=== PATIENT | male | born 1970 | race American Indian/Alaskan Native ===

== ENCOUNTER 2025-07-08 21:41 | Emergency (ER) | payer MEDICAID, SELFPAY ==
[2025-07-08 21:53] VITALS: BP 147/112; PULSE 122; RESP 16; TEMP 37.4; O2SAT 100
--- NOTE | 2025-07-08 21:57 | PD.EDRME ---
Rapid Medical Screening Exam [facility] Arrival date/time: 07/08/25 21:41 CC: Headache, high feels different , patient recently used methamphetamines and was presented to the ER via PD who stated he had an accelerated heart rate. Patient is complaining of a mild frontal headache. Patient denies chest pain shortness of breath or difficulty breathing. Chief Complaint: Altered Mental Status Time Seen by Provider: 07/08/25 21:56 Vital signs: Vital Signs Temperature 99.3 F 07/08/25 21:53 Pulse Rate 122 H 07/08/25 21:53 Respiratory Rate 16 07/08/25 21:53 Blood Pressure 147/112 H 07/08/25 21:53 Pulse Oximetry (%) 100 07/08/25 21:53 Oxygen Delivery Method Room Air 07/08/25 21:53
[2025-07-08 22:09] LABS: Basophils # (Auto) 0.0 Thou/mm3 (0.0-0.2); Basophils % (Auto) 0 % (0-2.5); Eosinophils # (Auto) 0.0 Thou/mm3 (0.0-0.5); Eosinophils % (Auto) 1 % (0-10); Hematocrit 45.3 % (41.0-53.0); Hemoglobin 17.0 g/dL (13.5-16.0); Immature Granulocytes Auto 0.02 Thou/mm3 (0.00-0.00); Lymphocytes # (Auto) 2.2 Thou/mm3 (1.0-4.8); Lymphocytes % (Auto) 28 % (10-50); Mean Corpuscular HGB Conc 37.5 g/dl (31.0-37.0); Mean Corpuscular Hemoglobin 32.2 pg (25.0-35.0); Mean Corpuscular Volume 86 fL (80-100); Monocytes # (Auto) 0.5 Thou/mm3 (0.0-0.8); Monocytes % (Auto) 7 % (0-12); Neutrophils # (Auto) 4.9 Thou/mm3 (1.8-7.7); Neutrophils % (Auto) 64 % (37-80); Nucleated Red Blood Cell # 0.00 Thou/mm3 (0.00-0.00); Nucleated Red Blood Cell % 0 /100 WBC (0); Platelet Count 223 Thou/mm3 (140-440); RDW Standard Deviation 41.1 fL (35.1-43.9); Red Blood Count 5.28 Miln/mm3 (4.50-5.90); White Blood Count 7.6 Thou/mm3 (3.8-10.6)
[2025-07-08] MEDS: SODIUM CHLORIDE 0.9% 1000 ML 1,000 ML 999 ML IV (22:11)
[2025-07-08 22:16] VITALS: BMI 28.0
[2025-07-08 22:27] LABS: Alanine Aminotransferase 24 U/L (10-49); Albumin, Serum 4.9 gm/dL (3.5-5.0); Albumin/Globulin Ratio 1.5 (1.2-2.2); Alkaline Phosphatase 109 U/L (46-116); Anion Gap 16 (7-16); Aspartate Amino Transferase 31 U/L (0-34); BUN/Creatinine Ratio 5 Ratio (12-20); Bilirubin,Total 2.9 mg/dL (0.3-1.2); Blood Urea Nitrogen 6 mg/dL (9-23); Calcium 10.2 mg/dL (8.3-10.6); Calcium (Corrected) 10.2 mg/dL (8.5-10.1); Carbon Dioxide 20.6 mMol/L (20.0-31.0); Chloride 102 mMol/L (98-107); Creatinine (Component) 1.2 mg/dL (0.6-1.3); Estimated Creatinine Clearance 93.4 mL/min (>60); Globulin 3.3 gm/dL (2.3-3.5); Glucose 135 mg/dL (74-106); Osmolality,Calculated 277 (275-295); Potassium 3.2 mMol/L (3.4-5.1); Sodium 139 mMol/L (136-145); Total Protein 8.2 gm/dL (5.7-8.2); eGFR > 60 See Note
[2025-07-08 23:12] LABS: Collection Type, Urine Clean Catch; Squamous Epithelial Cell,Urine 0 /hpf (0-5)
[2025-07-08 23:15] LABS: Bilirubin,Urine Negative (Negative); Blood,Urine Negative (Negative); Clarity,Urine Clear (Clear/Hazy); Color,Urine Yellow (Lt Yel-Yel); Culture Indicated,Urine Not Indicated; Glucose, Urine Negative (Negative); Hyaline Casts,Urine < 1 /hpf (0-1); Ketones,Urine 1+ (Negative); Leukocyte Esterase,Urine Negative (Negative); Nitrite,Urine Negative (Negative); PH,Urine 6.0 (5.0-7.0); Protein,Urine 1+ (Neg - Trace); RBC,Urine 1 /hpf (0-3); Specific Gravity,Urine 1.018 (1.001-1.035); Urobilinogen,Urine 6.0 mg/dL (0.0-1.0); WBC,Urine 2 /hpf (0-5)
[2025-07-08 23:25] LABS: Amphetamine/Methamp Scrn,U Positive (Negative); Barbiturate Screen,Urine Negative (Negative); Benzodiazepines Screen,Urine Negative (Negative); Benzoylecgonine Screen, Ur Negative (Negative); Fentanyl Screen,Urine Negative (Negative); Opiate Screen,Urine Negative (Negative); THC Screen,Urine Negative (Negative)
--- NOTE | 2025-07-08 23:29 | EDNOTE_ITS ---
Altered Mental Status RME/HPI General Chief Complaint: Altered Mental Status Stated Complaint: ALTERED Time Seen by Provider: 07/08/25 21:56 Arrival date/time: 07/08/25 21:41 RME / HPI RME / HPI narrative: 07/08/25 21:41 CC: Headache, high feels different , patient recently used methamphetamines and was presented to the ER via PD who stated he had an accelerated heart rate. Patient is complaining of a mild frontal headache. Patient denies chest pain shortness of breath or difficulty breathing. --------- Dr. Villagran?s Main ED Evaluation: 54yo male who was escorted by DPS to ED after alleged use of fentanyl likely contaminated with meth. Patient is [id number] agitated. No syncope or seizure-like. No vomiting or diarrhea. Patient with paranoid delusions and fear of losing his life. PMH incl udes prediabetes, no history of heart disease. PSH includes cholecystectomy. Social history includes long-standing tobacco use, drinks 20 beers per day, reports frequent fentanyl use via inhalation route. Related Data Previous Rx's ?Medication ?Instructions ?Recorded hydrocodone 5 mg-acetaminophen 325 1 tab PO TID #10 ta bs 07/17/22 mg tablet Allergies Allergy/AdvReac Type Severity Reaction Status Date / Time No Known Allergies Allergy Verified 08/19/21 16:50 Review of Systems Review of Systems Systems Reviewed: All systems reviewed, normal except as documented Past Medical History Past Medical History NEUROLOGIC: Positive Head Trauma; Negative Neurological Disorders, Cerebrovascular Accident, Transient Ischemic Attacks (TIA), Dementia, Alzheimer's Disease, Parkinson's Disease, Brain Tumor, Meningitis, Seizures, Epilepsy, Multiple Sclerosis, Cerebral Palsy, Amyotrophic Lateral Sclerosis (ALS/Christen Gehrig's), Guillain-[place] Syndrome, Spina Bifida, Pa ralysis, Peripheral Neuropathy, Friedman's Palsy, Subdural Hematoma, Migraine, Spinal Cord Injury or Traumatic Brain Injury CARDIAC: Positive Cardiac Disorders and Hypertension; Negative Myocardial Infarction, Cardiac Arrhythmia, Atrial Fibrillation, Angina, Heart Murmur, Coronary Artery Disease, Atherosclerotic Heart Disease, Peripheral Vascular Disease, Aneurysm, Congestive Heart Failure, Congenital Heart Disease, Valvular Heart Disease, Rheumatic Fever, Cardiomyopathy, Edema, Pericarditis, Cellulitis, Deep Vein Thrombosis, Hypotension or Varicose Veins RESPIRATORY: Negative Chronic Obstructive Pulmonary Disease (COPD), Asthma, Bronchitis, Emphysema, Pneumonia, Pulmonary Fibrosis, Cystic Fibrosis, Tuberculosis, Pulmonary Embolism, Pulmonary Edema or Sleep Apnea GASTROINTESTINAL: Negative Gastrointestinal Disorders, Hepatitis, Cirrhosis, Pancreatitis, Celiac Disease, Gall Bladder Disease, Gastrointestinal Bleed, Esophageal Varices, Quiroz's Esophagus, Colitis, Ulcerative Colitis, Divert iculitis, Diverticulosis, Ulcer, Colorectal Cancer, Irritable Bowel, Crohn's Disease, Obstructive Bowel, Hiatal Hernia, Hemorrhoids, Gastroesophageal Reflux Disease or Obesity GENITOURINARY: Negative Renal Disease or Prostate Cancer REPRODUCTIVE: Negative Breast Cancer, Genital Herpes, Gonorrhea, Syphilis or Testicular Cancer MUSCULOSKELETAL: Negative Musculoskeletal Disorders, Muscular Dystrophy, Myasthenia Gravis, Marfan's Syndrome, Bone Cancer, Arthritis, Rheumatoid Arthritis, Osteoporosis, Degenerative Disk Disease, Gout, Scoliosis, Carpal Tunnel Syndrome, Fibromyalgia, Fractures, Degenerative Joint Disease, Osteomyelitis or Poliovirus ENT: Positive Head Trauma; Negative Cataracts, Glaucoma, Blind, Retinal Detachment, Macular Degeneration, Ear Infection, Deafness or Eye Prosthesis ENDOCRINE: Negative Diabetes Mellitus Type 1, Diabetes Mellitus Type 2, Hypoglycemia, Hyperthyroidism, Hypothyroidism, Parathyroid Disease, Pituitary Disease, Systemic Lupus Erythematosus, Syndrome of Inappropriate Antidiuretic Hormone (SIADH) or Graves' Disease HEMATOLOGIC: Negative Blood Disorders, Anemia, Leukemia, Hemophilia, Thalassemia, Sickle Cell Disease or Clotting Problems PSYCHO/SOCIAL: Positive Recreational Drug Use; Negative Psychiatric Problems, Schizophrenia, Bipolar Disorder, Depression, Anxiety, Behavior Problems, Self-Mutilation, Attention Deficit Disorder, Attention Deficit Hyperactivity Disorder, Post Traumatic Stress Disorder or Eating Disorder OTHER HISTORY: Positive Falls and Chicken Pox; Negative Hospitalization, Autoimmune Disease, Down Syndrome, Autism, Development al Delay, Shingles, Blood Transfusions, Blood Transfusion Reaction, Anesthesia Reactions, Organ Transplant, Chemotherapy, Radiation Therapy, Hyperbaric Therapy, MRSA, VRSA, Vancomycin-Resistant Enterococci, Human Immunodeficiency Virus (HIV), Measles, Mumps, Rubella (Portuguese Measles), Pertussis, Clostridium Difficile, Cancer, Breast Cancer, Cervical Cancer, Colorectal Cancer, Lung Cancer, Ovarian Cancer, Prostate Cancer or Testicular Cancer Family History FAMILY HISTORY: Positive Family Psychiatric Problems, Family Cardiac Disorders, Family Gastrointestinal Problems, Family Cancer and Family Surgery; Negative Family Respiratory Disorders or Family Anesthesia Reaction Surgical History SURGICAL: Negative Cardiac Surgery, Open Heart Surgery, Coronary Artery Bypass Graft, Valve Replacement, Vascular Surgery, Coronary Stent, Cardiac Catheterization, Pacemaker, Angiogram, Auto Implanted Cardiovert Defib, Carotid Endarterectomy, Endocrine Surgery, Thyroidectomy, Ear Surgery, Tympanostomy Tube, Eye Surgery, Nose Surgery, Oral Surgery, Tonsillectomy, Adenoidectomy, Cochlear Implant, Corneal Transplant, Throat Surgery, Abdominal Surgery, Trac heostomy, Gastric Bypass Surgery, Gastrostomy, Bowel Surgery, Nephrectomy, Transurethral Resection, Joint Replacement, Amputation, Open Reduction Internal Fixation, Arthroscopy, Neurologic Surgery, Brain Shunt, Vasectomy or Organ Transplant Social History SMOKING STATUS: Never smoker SUBSTANCE USE: methamphetamine ED Exam Narrative Physical exam: GENERAL APPEARANCE: alert and oriented x 4, increased psychomotor agitation, appears unkempt, no acute distress VITALS: All vitals were reviewed and the pulse ox is 100% on room air, which is normal according to my interpretation. HEENT: Normocephalic, atraumatic; pupils equal, round, reactive to light; EOMI; mucous membranes pink, moist; oropharynx clear NECK: Supple LUNGS: CTABL; no wheezes, no rales, no rhonchi HEART: Tachycardic, regular rhythm; normal S1, S2; no murmurs ABDOMEN: non distended; normal BS; soft, no tenderness, no guarding, no rebound; no masses, no organomegaly, no hernia BACK: no CVA tenderness EXTREMITIES: atraumatic; no edema NEUROLOGIC: awake; alert and oriented x4; cranial nerves II-XII grossly intact; no focal sensory or motor deficits PSYCHIATRIC: restricted affect, slightly pressured speech, goal-directed, paranoid delusions, no SI or HI SKIN: warm, dry, normal color; no rashes Course Quality Measures none Orders Category Date Time Status EKG (ED ONLY) *Do not use* NOW Care 07/08/25 21:49 Completed Insert IV NOW Care 07/08/25 21:50 Active EKG (ED Only) Stat Exams 07/08/25 21:48 Ordered CBC Stat Lab 07/08/25 21:55 Completed CMP [Comprehensive Metabolic Panel] Stat Lab 07/08/25 21:55 Completed Drug Screen,Urine Stat Lab 07/08/25 23:05 Completed UA, C/S IF [Urinalysis, C/S if Indicated] Stat Lab 07/08/25 23:05 Completed Diazepam Inj [Valium Inj] Med 07/08/25 23:46 Discontinued 2.5 mg IVP X1 ONE Sodium Chloride 0.9% 1000 ml [Ns] 1,000 ml Med 07/08/25 21:49 Discontinued IV 999 mls/hr Sodium Chloride 0.9% 1000 ml [Ns] 1,000 ml Med 07/08/25 23:46 Discontinued IV 999 mls/hr Vital Signs Vital signs: Vital Signs Temperature 99.3 F 07/08/25 21:53 Pulse Rate 122 H 07/08/25 21:53 Respiratory Rate 16 07/08/25 21:53 Blood Pressure 147/112 H 07/08/25 21:53 Pulse Oximetry (%) 100 07/08/25 21:53 Oxygen Delivery Method Room Air 07/08/25 21:53 Altered Mental Status MDM Narrative MDM Narrative:: Scribe Attestation: 07/08/25 Mary Loja am scribing for and in the presence of Dr. Villagran. 54yo male who was escorted by DPS to ED after alleged use of fentanyl likely contaminated with meth. Patient is [id number] agitated. Please see PE findings. Lab markers demonstrated hemoconcentration Hgb 17, normal WBC and Plt counts. K low at 3.2. Total bilirubin elevated 2.3 (reduced from 5.1). Transaminases are unremarkable. Tox screen positive for methamphetamines. Patient placed on fishing reel assembler, mod agit, hyd to miah, low dose benzo to control agitation. obs for seeral hrs, vs imp, rest comf on serial eval, and marked redu of psych. Aprop inter and cons stable for dc. counseked regarding substance use and will be released on his own accord. Precaution instructions is sued. Patient data External records reviewed:: 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.) Clinical information provided by:: patient Social determinants that could affect healthcare access:: substance use Patient has the following chronic illnesses:: none How is presenting disease/condition affected by chronic disease/condition?: no chronic disease Evaluation data The following diagnostics were reviewed and interpreted by me:: lab results and EKG tracing(s) Lab and/or radiology exams considered but not ordered:: none Interpretation Summary: EKG done at 2150, rate of 127, no acute pathological ST segment changes, no ectopy, normal intervals, right axis deviation, no signs of accessory pathway, according to my interpretation. Medications / Prescriptions Medications or Prescriptions considered but not ordered:: none Medication administrations:: Medication Administration History Discontinued Medications Diazepam (Diazepam Inj 5 Mg/Ml Vial 2 Ml) 2.5 mg IVP X1 ONE Stop: 07/08/25 23:47 Last Admin: 07/09/25 00:09 Dose: 2.5 mg Documented By: CCT Sodium Chloride (Ns) 1,000 mls @ 999 mls/hr IV .Q1H1M ONE Stop: 07/08/25 22:49 Last Infusion: 07/08/25 23:10 Dose: Infused Documented By: Admin: 07/08/25 22:11 Dose: 999 mls/hr Documented By: CCT Sodium Chloride (Ns) 1,000 mls @ 999 mls/hr IV .Q1H1M ONE Stop: 07/09/25 00:46 Last Infusion: 07/09/25 01:25 Dose: Infused Documented By: Admin: 07/09/25 00:09 Dose: 999 mls/hr Documented By: CCT see above Consultations Consultation(s) initiated? (list below): No Diagnosis Differential diagnosis altered mental status: other (agitation, drug use, dehydration, electrolyte abnormality) Most likely diagnosis given after review of the tests above:: see clinical impression below Admission Indicated Admission indicated?: not indicated Admission Request Was there a request for admission?: No Disposition Plan Disposition Plan: Discharge Discharge Attestation Discharge Attestation: The patient and all family members were given an opportunity to ask questions and understood the discharge instructions. Discharge instructions specifically effects, indications for sooner follow up or return to the emergency department, and the expected course of current diagnosis. Patient condition: Stable Critical Care Time Critical Care Time Critical Care Time: Yes Total Critical Care Time (min.): 35 Attestation: The high probability of sudden, clinically significant deterioration in the patient?s condition required the highest level of my preparedness to intervene urgently. The services I provided to this patient were to treat and/or prevent clinically significant deterioration. Services included the following: chart data review, reviewing nursing notes and/or old charts, documentation time, animal nutrition consultant collaboration regarding findings and treatment options, medication orders and management, direct patient care, vital sign assessments and ordering, interpreting and reviewing diagnostic studies and lab tests. Aggregate critical care time includes only time during which I was engaged in work directly related to the patient?s care, as described above, whether at bedside or elsewhere in the Emergency Department. It did not include time spent performing other reported procedures or the services of residents, students, nurses or physician assistants. Discharge Plan Plan Patient Disposition: HOME (Self Care) Discharge Disposition comment: Stable Prescriptions/Referrals Prescriptions/Med Rec: No Action hydrocodone-acetaminophen 5-325 mg tablet 1 tab PO TID MDD 3 Qty: 10 0RF Referrals: No Primary/Family,Physician [Primary Care Provider] - In 1 week Problem List Clinical Impression: Substance abuse, Altered mental status Impression comment: Substance abuse/altered mental status Patient/Caregiver Discharge Instructions Discharge Activity: activity as tolerated Education Materials: Addiction: Getting Help, Treating Drug Abuse and Addiction Additional Instructions: Increase fluids, maintain adequate rest, avoid substance abuse. Follow-up primary care doctor in 1 to 2 weeks as needed return if worse Print Language: Kyrgyz Stand Alone Forms: Lucy Award Info., Patient Portal Info Letter
[2025-07-09] MEDS: SODIUM CHLORIDE 0.9% 1000 ML 1,000 ML 999 ML IV (00:09)
[2025-07-09] MEDS: DIAZEPAM INJ 5 MG/ML VIAL 2 ML 2.5 MG IVP (00:09)
[2025-07-09 00:13] VITALS: BP 132/95; PULSE 96; RESP 16; TEMP 36.9; O2SAT 96
[2025-07-09 02:33] VITALS: BP 113/78; PULSE 75; RESP 18; TEMP 36.6; O2SAT 98
[2025-07-09 04:00] VITALS: BP 117/82; PULSE 90; RESP 19; TEMP 36.5; O2SAT 99
== END 2025-07-09 04:00 | disposition home or self-care (01) ==
PROVIDERS: Emergency Provider Emergency Medicine
DX: F19.10 Other psychoactive substance abuse, uncomplicated (principal); R41.82 Altered mental status, unspecified
CPT/HCPCS: 36415; 80053; 80307; 81001; 85025; 93005; 96361; 96374; 99284; J3360; J7030

== ENCOUNTER 2025-07-09 10:40 | Emergency (ER) | payer MEDICAID, SELFPAY ==
[2025-07-09 10:42] VITALS: BMI 34.0
[2025-07-09 11:00] VITALS: BP 133/79; PULSE 89; RESP 18; TEMP 36.9; O2SAT 100
--- NOTE | 2025-07-09 11:11 | EDNOTE_ITS ---
ED General RME/HPI General Chief complaint: General Adult/Misc Complain Stated complaint: I DON'T FEEL GOOD, SEEN LAST NIGHT Time Seen by Provider: 07/09/25 11:07 Arrival date/time: 07/09/25 10:40 CC: Auditory hallucination paranoia HPI patient states people are chasing him and he wants to cut his arm off. HPI patient was seen here last night for methamphetamine abuse, there is speculation that he spent the night in the ER waiting room care and the patient is now signed back in again. Patient denies using since last night port. Patient states he has homicidal ideation. Related Data Previous Rx's ?Medication ?Instructions ?Recorded hydrocodone 5 mg-acetaminophen 325 1 tab PO TID #10 ta bs 07/17/22 mg tablet Allergies Allergy/AdvReac Type Severity Reaction Status Date / Time No Known Allergies Allergy Verified 07/09/25 10:45 Review of Systems Review of Systems Narrative Review of Systems: GEN: No fever, no chills, no weight loss EYES: No discharge, no visual changes, no pain HEENT: No ear pain, no congestion, no sore throat PULM: No shortness of breath, no cough, no congestion CV: No chest pain, no dyspnea on exertion, no palpitations GI: No nausea, no vomiting, no diarrhea, no pain, no constipation : No frequency, no urgency, no dysuria MUSC/SKEL: No joint pain, no back pain SKIN: No rash PSYCH: + hallucinations, no depression HEME/LYMPH: No easy bleeding or bruising tendencies NEURO: No weakness, no headache Past Medical History Past Medical History NEUROLOGIC: Positive Head Trauma; Negative Neurological Disorders, Cerebrovascular Accident, Transient Ischemic Attacks (TIA), Dementia, Alzheimer's Disease, Parkinson's Disease, Brain Tumor, Meningitis, Seizures, Epilepsy, Multiple Sclerosis, Cerebral Palsy, Amyotrophic Lateral Sclerosis (ALS/Christen Gehrig's), Guillain-[place] Syndrome, Spina Bifida, Paralysis, Peripheral Neuropathy, Friedman's Palsy, Subdural Hematoma, Migraine, Spinal Cord Injury or Traumatic Brain Injury CARDIAC: Positive Cardiac Disorders and Hypertension; Negative Myocardial Infarction, Cardiac Arrhythmia, Atrial Fibrillation, Angina, Heart Murmur, Coronary Artery Disease, Atherosclerotic Heart Disease, Peripheral Vascular Disease, Aneurysm, Congestive Heart Failure, Congenital Heart Disease, Valvular Heart Disease, Rheumatic Fever, Cardiomyopathy, Edema, Pericarditis, Cellulitis, Deep Vein Thrombosis, Hypotension or Varicose Veins RESPIRATORY: Negative Chronic Obstructive Pulmonary Disease (COPD), Asthma, Bronchitis, Emphysema, Pneumonia, Pulmonary Fibrosis, Cystic Fibrosis, Tuberculosis, Pulmonary Embolism, Pulmonary Edema or Sleep Apnea GASTROINTESTINAL: Negative Gastrointestinal Disorders, Hepatitis, Cirrhosis, Pancreatitis, Celiac Disease, Gall Bladder Disease, Gastrointestinal Bleed, Esophageal Varices, Quiroz's Esophagus, Colitis, Ulcerative Colitis, Diverticulitis, Diverticulosis, Ulcer, Colorectal Cancer, Irritable Bowel, Crohn's Disease, Obstructive Bowel, Hiatal Hernia, Hemorrhoids, Gastroesophageal Reflux Disease or Obesity GENITOURINARY: Negative Renal Disease or Prostate Cancer REPRODUCTIVE: Negative Breast Cancer, Genital Herpes, Gonorrhea, Syphilis or Testicular Cancer MUSCULOSKELETAL: Negative Musculoskeletal Disorders, Muscular Dystrophy, Myasthenia Gravis, Marfan's Syndrome, Bone Cancer, Arthritis, Rheumatoid Arthritis, Osteoporosis, Degenerative Disk Disease, Gout, Scoliosis, Carpal Tunnel Syndrome, Fibromyalgia, Fractures, Degenerative Joint Disease, Osteomyelitis or Poliovirus ENT: Positive Head Trauma; Negative Cataracts, Glaucoma, Blind, Retinal Detachment, Macular Degeneration, Ear Infection, Deafness or Eye Prosthesis ENDOCRINE: Negative Diabetes Mellitus Type 1, Diabetes Mellitus Type 2, Hypoglycemia, Hyperthyroidism, Hypothyroidism, Parathyroid Disease, Pituitary Disease, Systemic Lupus Erythematosus, Syndrome of Inappropriate Antidiuretic Hormone (SIADH) or Graves' Disease HEMATOLOGIC: Negative Blood Disorders, Anemia, Leukemia, Hemophilia, Thalassemia, Sickle Cell Disease or Clotting Problems PSYCHO/SOCIAL: Positive Recreational Drug Use; Negative Psychiatric Problems, Schizophrenia, Bipolar Disorder, Depression, Anxiety, Behavior Problems, Self-Mutilation, Attention Deficit Disorder, Attention Deficit Hyperactivity Disorder, Post Traumatic Stress Disorder or Eating Disorder OTHER HISTORY: Positive Falls and Chicken Pox; Negative Hospitalization, Autoimmune Disease, Down Syndrome, Autism, Developmental Delay, Shingles, Blood Transfusions, Blood Transfusion Reaction, Anesthesia Reactions, Organ Transplant, Chemotherapy, Radiation Therapy, Hyperbaric Therapy, MRSA, VRSA, Vancomycin-Resistant Enterococci, Human Imm unodeficiency Virus (HIV), Measles, Mumps, Rubella ([place] Measles), Pertussis, Clostridium Difficile, Cancer, Breast Cancer, Cervical Cancer, Colorectal Cancer, Lung Cancer, Ovarian Cancer, Prostate Cancer or Testicular Cancer Family History FAMILY HISTORY: Positive Family Psychiatric Problems, Family Cardiac Disorders, Family Gastrointestinal Problems, Family Cancer and Family Surgery; Negative Family Respiratory Disorders or Family Anesthesia Reaction Surgical History SURGICAL: Negative Cardiac Surgery, Open Heart Surgery, Coronary Artery Bypass Graft, Valve Replacement, Vascular Surgery, Coronary Stent, Cardiac Catheterization, Pacemaker, Angiogram, Auto Implanted Cardiovert Defib, Carotid Endarterectomy, Endocrine Surgery, Thyroidectomy, Ear Surgery, Tympanostomy Tube, Eye Surgery, Nose Surgery, Oral Surgery, Tonsillectomy, Adenoidectomy, Cochlear Implant, Corneal Transplant, Throat Surgery, Abdominal Surgery, Tracheostomy, Gastric Bypass Surgery, Gastrostomy, Bowel Surgery, Nephrectomy, Transurethral Resection, Joint Replacement, Amputation, Open Reduction Internal Fixation, Arthroscopy, Neurologic Surgery, Brain Shunt, Vasectomy or Organ Transplant Social History SMOKING STATUS: Never smoker SUBSTANCE USE: methamphetamine ED Exam Narrative Physical exam: [General: Not in any acute distress Head normocephalic HEENT: Within acceptable limits Neck is supple nontender Chest equal chest rise nontender to palpation Respiratory: Clear to auscultation no wheezes crackles or rubs CV: Rate rhythm is regular no murmurs rubs or clicks Abdomen is soft nontender no masses positive bowel sounds all 4 quadrants Back: No CVA tenderness no spinous process tenderness from cervical spine thoracic and lumbar spine Skin: Intact no petechiae rash induration ulceration or crepitus Extremities: Moving all extremity against resistance cap refill less than 2 seconds neurosensory intact Neuro: Awake alert oriented x3 Glascow coma 15 no focal deficits] Course Course Course Narrative: Upon assessment and initial intake, discussed with case management states we do not do repeat laboratory findings as we have them from 11 PM last night. They will evaluate the patient for psychiatric concerns. Patient seen by case management who is scheduled outpatient appointment for him. Patient is cleared for discharge. Quality Measures none Vital Signs Vital signs: Vital Signs Temperature 98.5 F 07/09/25 11:00 Pulse Rate 89 07/09/25 11:00 Respiratory Rate 18 07/09/25 11:00 Blood Pressure 133/79 H 07/09/25 11:00 Pulse Oximetry (%) 100 07/09/25 11:00 Oxygen Delivery Method Room Air 07/09/25 11:00 Discharge Plan Plan Patient Disposition: HOME (Self Care) Patient condition on transfer: Stable Prescriptions/Referrals Prescriptions/Med Rec: No Action hydrocodone-acetaminophen 5-325 mg tablet 1 tab PO TID MDD 3 Qty: 10 0RF Problem List Clinical Impression: Auditory hallucination, Methamphetamine abuse Patient/Caregiver Discharge Instructions Print Language: Amharic Stand Alone Forms: [employer] Award Info., Patient Portal Info Letter PA/MACHINE FEED OPERATOR Supervising Physician PA/MACHINE FEED OPERATOR Supervising Physician: Ephraim Francis ENP MDM Clinical Information Provided by: patient Medical Records reviewed [facility] Meds/Rx considered, not ordered None Labs/Rad/Tests considered, not ordered None Chronic Illness/Social Conditions which may negatively complicate care or outcome(s)-explain: Homeless and ETOH/drugs/substance abuse EKG EKG not done Labs Labs: none Imaging Imaging interpretation: none
--- NOTE | 2025-07-09 12:50 | PC.CC ---
1130-ASW met with pt inside the Family Conference room. Pt denies SI/HI. States he has been using drugs, meth daily since he got out of retirement on 07/04/25. Pt states he is homeless at this time. Pt reports he wants to eat and wants community resources to outpatient MH treatment and AOD services. ASW and WASHING MACHINE LOADER Shaker Tender provided community resources as requested. ASW asked pt if he was wanting a referral to AOD and MH services and he said, Yes. WASHING MACHINE LOADER Shaker Tender Alvina Sanchez contacted [facility] and scheduled a MH appointment today for pt. Pt is aware and states he will attend. AOD services need to be scheduled by the pt in person or over the phone and that this time, pt was not willing to talk to AOD to schedule that appointment. At this time, pt does denies SI/HI and states his feelings of despair are due to daily Meth use. Pt states he has a long history of meth use and homelessness. At this time, pt was only willing to receive information on AOD but denied making the appointment himself. SS has assessed the pt.
== END 2025-07-09 12:46 | disposition home or self-care (01) ==
LOC: SERX 12:41
PROVIDERS: Emergency Provider Family Medicine; PCP Physician Assistant
DX: F22 Delusional disorders (principal); F15.10 Other stimulant abuse, uncomplicated
CPT/HCPCS: 99281

== ENCOUNTER → 2025-07-27 | Outpatient (CLI) | payer MEDICAID, SELFPAY ==
--- NOTE | 2025-07-27 13:06 | XR_ITS ---
Examination: Knee, right, 3 views Technique: Knee AP, lateral, oblique 3 views Date and time of exam: July 27, 2025, 1321 hours INDICATION: Right knee pain beginning 1 year ago. FINDINGS: Advanced tricompartment osteoarthritis Severe narrowing medial joint space No fracture or dislocation IMPRESSION: Advanced tricompartment osteoarthritis
== END | disposition home or self-care (01) ==
PROVIDERS: PCP Nurse Practitioner Family; Referring Provider Nurse Practitioner Family; Visit Provider Nurse Practitioner Family
DX: M17.11 Unilateral primary osteoarthritis, right knee (principal); Z98.890 Other specified postprocedural states
CPT/HCPCS: 73562